=== PATIENT | female | born 1995 | race Caucasian/White ===

== ENCOUNTER → 2018-05-07 | Outpatient (CLI) | payer OTHER | END | disposition home or self-care (01) | LOC: C.LAB1850 16:28 | PROVIDERS: ATTEND Obstetrics & Gynecology | DX: O46.90 Antepartum hemorrhage, unspecified, unspecified trimester (principal) ==

== ENCOUNTER → 2018-05-14 | Outpatient (CLI) | payer OTHER | END | disposition home or self-care (01) | LOC: C.LAB1850 16:19 | PROVIDERS: ATTEND Obstetrics & Gynecology | DX: O02.1 Missed abortion (principal) ==

== ENCOUNTER → 2018-05-29 | Outpatient (CLI) | payer OTHER ==
[~2018-05-29] MED LIST: NITR1CAP16 PO; PHEN-876 PO
== END | disposition home or self-care (01) ==
LOC: C.LAB1850 15:38
PROVIDERS: ATTEND Obstetrics & Gynecology
DX: O02.1 Missed abortion (principal)

== ENCOUNTER 2018-06-05 20:15 | Emergency (ER) | payer OTHER ==
[~2018-06-05] VITALS: Ht 157.5 cm; Wt 61.8 kg
[2018-06-05 20:24] VITALS: TEMP 36.8; Ht 157.5 cm; Wt 61.8 kg
[2018-06-05] MEDS ORDERED: PHENAZOPYRIDINE HCL 200 MG TAB PO STA (21:22)
[2018-06-05] MEDS ORDERED: NITROFURANTOIN MONOHYDRATE 100 MG CAP PO STA (21:22)
[2018-06-05] MEDS ORDERED: PHEN-876 PO (21:27)
[2018-06-05] MEDS ORDERED: NITR1CAP16 PO (21:27)
--- NOTE | 2018-06-05 21:29 | EMERGENCY ROOM VISIT NOTE ---
History Report prepared by Gm: Dino Romero Under the Supervision of: Dr. Catrachito Fernandez D.O. First contact with patient: 20:28 Chief Complaint: URINARY SYMPTOMS Stated Complaint: UTI Nursing Triage Summary: Pt reports UTI. Pt with burning, increase in frequency, pain during urination. History of Present Illness The patient is a 23 year old female who presents to the Emergency Room with complaints of dysuria, cramping pressure to the abdomen, and a burning sensation in the urethra that started 3 days ago. She has tried cranberry juice along with drinking a lot of fluids to try to relieve the pain but it did not work. She does not know her last normal menstrual period due to a recent miscarriage. Source of History: patient Onset: 3 days ago Position: pelvis (Genitourinary ) Quality: pressure, burning Modifying Factors (Worsening): urination Associated Symptoms: + abdominal pain, + urinary symptoms Review of Systems See HPI for pertinent positives & negatives. A total of 10 systems reviewed and were otherwise negative. Past Medical & Surgical Medical Problems: (1) 7 weeks gestation of (2) Cramping affecting , antepartum (3) Migraine (4) Twin (5) Twins (6) Twins (7) Uterine contractions Family History Patient reports no known family medical history. Social History Smoking Status: Current Every Day Smoker Drug Use: none Housing Status: lives with family Occupation Status: employed Current/Historical Medications Scheduled Nitrofurantoin Monohyd Macro (Macrobid), 1 CAP PO BID Phenazopyridine HCl (Pyridium), 200 MG PO TID Allergies Coded Allergies: Oxycodone (Verified Allergy, Severe, ANAPHYLAXIS, 05/06/18) Physical Exam Vital Signs Date Time Temp Pulse Resp B/P (MAP) Pulse Ox O2 Delivery O2 Flow Rate FiO2 06/05/18 20:24 36.8 98 18 121/81 96 Room Air Physical Exam CONSTITUTIONAL/VITAL SIGNS: Reviewed / noted above. GENERAL: Non-toxic in appearance. INTEGUMENTARY: Warm, dry, and [place]. HEAD: Normocephalic. EYES: without scleral icterus or trauma. ENT/OROPHARYNX: clear and moist. LYMPHADENOPATHY/NECK: Is supple without lymphadenopathy or meningismus. RESPIRATORY: Lungs clear and equal. CARDIOVASCULAR: Regular rate and rhythm. GI/ABDOMEN: Soft and nontender. No organomegaly or pulsatile mass. No rebound or guarding. Normal bowel sounds. EXTREMITIES: Warm and well perfused. BACK: No CVA tenderness. NEUROLOGICAL: Intact without focal deficits. PSYCHIATRIC: normal affect. MUSCULOSKELETAL: Normally developed with good muscle tone. Medical Decision & Procedures Laboratory Results Test 06/05/18 20:55 Bedside Urine Test NEG (NEG) Laboratory results as stated above per my review. ED Course 2038: Previous medical records were reviewed. The patient was evaluated in room B12B. A complete history and physical examination was performed. 2121: Pyridium 200mg PO, Macrobid Cap 100mg PO 2130: On reevaluation, the patient is resting in bed. I discussed the results and findings with the patient. She verbalized agreement of the treatment plan. She was discharged home. Medical Decision Differential considered: pancreatitis, hepatitis, or acute cholecystitis, AAA, UTI, pyelonephritis, kidney stones, appendicitis, diverticulitis, shingles, bowel obstruction mesenteric ischemia, intussusception,hernia, ovarian torsion, ruptured ovarian cyst,ectopic , . This is a 23-year-old female who presents to the ED with a chief complaint of urinary infection symptoms. She has describes some burning as well as frequency. She describes some lower abdominal discomfort. She has not had any fevers. The patient is here also with her son who has a fever and abdominal pain. A urine dip reveals evidence of UTI. Urine culture has been sent. Her exam was unremarkable. She was given Pyridium and Macrobid. She will be discharged on Macrobid. Medication Reconcilliation Current Medication List: was personally reviewed by me Blood Pressure Screening Patient's blood pressure: Normal blood pressure Impression Primary Impression: UTI (urinary tract infection) Scribe Attestation The scribe's documentation has been prepared under my direction and personally reviewed by me in its entirety. I confirm that the note above accurately reflects all work, treatment, procedures, and medical decision making performed by me. Departure Information Dispostion Home / Self-Care Prescriptions Phenazopyridine HCl (Pyridium) 200 Mg Tab 200 MG PO TID for Bladder Pain, #6 TAB Prov: Catrachito Fernandez D.OTrevor 06/05/18 Nitrofurantoin Monohyd Macro (MACROBID) 100 Mg Cap 1 CAP PO BID for 5 Days, #10 CAP Prov: Catrachito Fernandez D.O. 06/05/18 Referrals No Doctor, Assigned (PCP) Forms HOME CARE DOCUMENTATION FORM, IMPORTANT VISIT INFORMATION Patient Instructions My [facility] Additional Instructions Macrobid as prescribed. Pyridium as prescribed . Follow-up with your doctor for further care and evaluation in 1-2 days if worsening. Return to the emergency department for worsening or new symptoms or any concerns. You have been examined and treated today on an emergency basis only. This is not a substitute for, or an effort to provide, complete comprehensive medical care. It is impossible to recognize and treat all injuries or illnesses in a single emergency department visit. It is therefore important that you follow up closely with your doctor. Call as soon as possible for an appointment.
[2018-06-05 21:49] VITALS: BP 111/72; PULSE 73; O2SAT 99
== END 2018-06-05 21:50 | disposition home or self-care (01) ==
LOC: C.EDB 20:16
DX: N39.0 Urinary tract infection, site not specified (principal); F17.210 Nicotine dependence, cigarettes, uncomplicated; Z88.5 Allergy status to narcotic agent

== ENCOUNTER 2018-06-16 13:31 | Emergency (ER) | payer OTHER ==
[~2018-06-16] VITALS: Ht 157.5 cm; Wt 61.5 kg
[~2018-06-16 13:31] MED LIST changes: -NITR1CAP16 PO
[2018-06-16 13:37] VITALS: Ht 157.5 cm; Wt 61.5 kg
[2018-06-16] MEDS ORDERED: ONDANSETRON INJ 2 MG/ML 2 ML VIAL IV STA ×2 (13:56→16:27)
[2018-06-16] MEDS ORDERED: SODIUM CHLORIDE 0.9% 1000ML 2,000 ML IV STA (13:56)
[2018-06-16] MEDS ORDERED: MoRPHine SULFATE 4 MG/ML 1 ML CARP\\VIAL IV STA ×2 (13:56→16:27)
[2018-06-16 14:41] LABS: BASO % 0.3 %; BASO ABS # 0.02 K/uL (0-0.2); EOS % 1.7 %; HEMATOCRIT 36.5 % (37-47); HEMOGLOBIN 12.2 g/dL (12.0-16.0); IG# 0.01 K/uL (0.00-0.02); LYMPH ABS # 2.41 K/uL (1.2-3.4); MEAN CELL VOLUME 86.7 fL (80-100); MEAN CORPUSCULAR HGB CONC 33.4 g/dl (32-36); MEAN PLATELET VOLUME 10.5 fL (7.4-10.4); MONO % 5.8 %; MONO ABS # 0.35 K/uL (0.11-0.59); NEUT ABS # 3.13 K/uL (1.4-6.5); PLATELET COUNT 201 K/uL (130-400); RED CELL DISTRIBUTION WIDTH CV 12.7 % (11.5-14.5); WHITE BLOOD COUNT 6.02 K/uL (4.8-10.8)
[2018-06-16] MEDS ORDERED: CIPR1TAB11 PO (14:46)
[2018-06-16 15:03] LABS: ALBUMIN 3.9 gm/dl (3.4-5.0); CALCIUM 8.5 mg/dl (8.5-10.1); CREATININE 0.68 mg/dl (0.60-1.20); POTASSIUM 3.5 mmol/L (3.5-5.1); TOTAL PROTEIN 7.5 gm/dl (6.4-8.2)
--- NOTE | 2018-06-16 15:19 | DIAGNOSTIC IMAGING REPORT ---
ABDOMEN 2VIEW W/PA CHEST RTN HISTORY: 23 years-old Female abd pain acute generalized abdominal pain COMPARISON: None available TECHNIQUE: PA view of the chest with erect and supine views of the abdomen FINDINGS: Cardiomediastinal and hilar silhouettes are within normal limits. No pneumothorax, pleural effusion, focal airspace consolidation or overt pulmonary edema. Bones of the chest appear grossly intact. Mild sigmoidal scoliosis of the thoracolumbar spine. No pneumatosis or pneumoperitoneum. Bowel gas pattern appears nonobstructive. No definite urolith identified. Mild gaseous distention of the large bowel. IMPRESSION: Unremarkable acute abdominal series radiographs. The above report was generated using voice recognition software. It may contain grammatical, syntax or spelling errors. Electronically signed by: Bakari Horton M.D. 06/16/2018 3:18 PM Dictated Date/Time: 06/16/2018 3:14 PM
--- NOTE | 2018-06-16 15:51 | DIAGNOSTIC IMAGING REPORT ---
ABDOMINAL ULTRASOUND, RIGHT UPPER QUADRANT HISTORY: Epigastric abdominal pain.. COMPARISON: None. FINDINGS: Pancreas: The pancreas demonstrates a normal echotexture. Liver: Unremarkable. Gallbladder: No gallbladder wall thickening. No gallstones. CBD: 3 mm. Right kidney: No hydronephrosis. IMPRESSION: No significant abnormality identified within the right upper quadrant. Electronically signed by: Ender Lopez M.D. 06/16/2018 3:50 PM Dictated Date/Time: 06/16/2018 3:49 PM
[2018-06-16] MEDS ORDERED: ONDA4TAB46 PO (16:24)
[2018-06-16 16:49] VITALS: BP 111/61; PULSE 70; TEMP 37; O2SAT 100
--- NOTE | 2018-06-16 20:07 | EMERGENCY ROOM VISIT NOTE ---
History Report prepared by Gm: Johnna Cohn Under the Supervision of: Armin PickensO. First contact with patient: 13:47 Chief Complaint: ABDOMINAL PAIN Stated Complaint: STOMACH PAIN History of Present Illness The patient is a 23 year old female who presents to the Emergency Room with complaints of constant upper abdominal pain that onset yesterday. The patient describes this as a sharp and burning pain. She notes that this pain onset while she was at work. She states that eating exacerbates the pain. She complains of nausea, vomiting once, a subjective fever, chills, and diarrhea once. The patient denies vaginal discharge and bleeding. The patient states that she had a miscarriage a few months ago so she has an irregular period, and might be . She notes that she currently has a UTI that she is taking antibiotics for. She notes that she has a history of an appendectomy. Source of History: patient Onset: yesterday Position: abdomen (upper) Quality: burning, sharp Timing: constant Modifying Factors (Worsening): eating Associated Symptoms: + fevers, + chills, + nausea, + vomiting, + diarrhea Note: The patient denies vaginal bleeding or discharge. Review of Systems See HPI for pertinent positives & negatives. A total of 10 systems reviewed and were otherwise negative. Past Medical & Surgical Medical Problems: (1) 7 weeks gestation of (2) Cramping affecting , antepartum (3) Migraine (4) Twin (5) Twins (6) Twins (7) Uterine contractions Family History FH: HTN (hypertension) FH: diabetes mellitus FH: gallbladder disease FH: heart disease FH: seizures Social History Smoking Status: Current Every Day Smoker Drug Use: none Housing Status: lives with family Occupation Status: employed Current/Historical Medications Scheduled Ciprofloxacin Tab (Cipro), 250 MG PO BID Scheduled PRN Ondansetron Hcl (Zofran), 4 MG PO TID PRN for Nausea Allergies Coded Allergies: Oxycodone (Verified Allergy, Severe, ANAPHYLAXIS, 06/16/18) Physical Exam Vital Signs Date Time Temp Pulse Resp B/P (MAP) Pulse Ox O2 Delivery O2 Flow Rate FiO2 06/16/18 16:49 37.0 70 15 111/61 100 06/16/18 16:10 70 15 111/60 100 Room Air 06/16/18 13:37 37.0 85 18 123/80 99 Room Air Physical Exam GENERAL: Sitting up in bed, alert, well appearing, well nourished, no distress, non-toxic EYE EXAM: normal conjunctiva. OROPHARYNX: no exudate, no erythema, lips, buccal mucosa, and tongue normal and mucous membranes are moist NECK: supple, no nuchal rigidity, no adenopathy, non-tender LUNGS: Clear to auscultation. Normal chest wall mechanics HEART: no murmurs, S1 normal and S2 normal ABDOMEN: abdomen soft, tenderness to the middle epigastric region, normo-active bowel sounds, no masses, no rebound or guarding. BACK: Back is symmetrical on inspection and there is no deformity, no midline tenderness, no CVA tenderness. SKIN: no rashes and no bruising UPPER EXTREMITIES: upper extremities are grossly normal. LOWER EXTREMITIES: No pitting edema. NEURO EXAM: Normal sensorium, cranial nerves II-XII grossly intact, normal speech, no gross weakness of arms, no gross weakness of legs. Medical Decision & Procedures ER Provider Diagnostic Interpretation: Radiology results as stated below per my review and the radiologist's interpretation: ABDOMINAL ULTRASOUND, RIGHT UPPER QUADRANT HISTORY: Epigastric abdominal pain.. COMPARISON: None. FINDINGS: Pancreas: The pancreas demonstrates a normal echotexture. Liver: Unremarkable. Gallbladder: No gallbladder wall thickening. No gallstones. CBD: 3 mm. Right kidney: No hydronephrosis. IMPRESSION: No significant abnormality identified within the right upper quadrant. Electronically signed by: Ender Lopez M.D. 06/16/2018 3:50 PM Dictated Date/Time: 06/16/2018 3:49 PM ABDOMEN 2VIEW W/PA CHEST RTN HISTORY: 23 years-old Female abd pain acute generalized abdominal pain COMPARISON: None available TECHNIQUE: PA view of the chest with erect and supine views of the abdomen FINDINGS: Cardiomediastinal and hilar silhouettes are within normal limits. No pneumothorax, pleural effusion, focal airspace consolidation or overt pulmonary edema. Bones of the chest appear grossly intact. Mild sigmoidal scoliosis of the thoracolumbar spine. No pneumatosis or pneumoperitoneum. Bowel gas pattern appears nonobstructive. No definite urolith identified. Mild gaseous distention of the large bowel. IMPRESSION: Unremarkable acute abdominal series radiographs. The above report was generated using voice recognition software. It may contain grammatical, syntax or spelling errors. Electronically signed by: Bakari Horton M.D. 06/16/2018 3:18 PM Dictated Date/Time: 06/16/2018 3:14 PM Laboratory Results 06/16/18 14:30 Red Blood Count 4.21, Mean Corpuscular Volume 86.7, Mean Corpuscular Hemoglobin 29.0, Mean Corpuscular Hemoglobin Concent 33.4, Mean Platelet Volume 10.5, Neutrophils (%) (Auto) 52.0, Lymphocytes (%) (Auto) 40.0, Monocytes (%) (Auto) 5.8, Eosinophils (%) (Auto) 1.7, Basophils (%) (Auto) 0.3, Neutrophils # (Auto) 3.13, Lymphocytes # (Auto) 2.41, Monocytes # (Auto) 0.35, Eosinophils # (Auto) 0.10, Basophils # (Auto) 0.02 06/16/18 14:30 Test 06/16/18 14:15 06/16/18 14:30 Urine Color YELLOW Urine Appearance CLOUDY (CLEAR) Urine pH 6.0 (4.5-7.5) Urine Specific [place] 1.015 (1.000-1.030) Urine Protein NEG (NEG) Urine Glucose (UA) NEG (NEG) Urine Ketones 1+ (NEG) Urine Occult Blood NEG (NEG) Urine Nitrite NEG (NEG) Urine Bilirubin NEG (NEG) Urine Urobilinogen NEG (NEG) Urine Leukocyte Esterase TRACE (NEG) Urine WBC (Auto) 5-10 /hpf (0-5) Urine RBC (Auto) 0-4 /hpf (0-4) Urine Hyaline Casts (Auto) 1-5 /lpf (0-5) Urine Epithelial Cells (Auto) >30 /lpf (0-5) Urine Bacteria (Auto) 1+ (NEG) Urine Test NEG (NEG) White Blood Count 6.02 K/uL (4.8-10.8) Red Blood Count 4.21 M/uL (4.2-5.4) Hemoglobin 12.2 g/dL (12.0-16.0) Hematocrit 36.5 % (37-47) Mean Corpuscular Volume 86.7 fL (80-100) Mean Corpuscular Hemoglobin 29.0 pg (25-34) Mean Corpuscular Hemoglobin Concent 33.4 g/dl (32-36) Platelet Count 201 K/uL (130-400) Mean Platelet Volume 10.5 fL (7.4-10.4) Neutrophils (%) (Auto) 52.0 % Lymphocytes (%) (Auto) 40.0 % Monocytes (%) (Auto) 5.8 % Eosinophils (%) (Auto) 1.7 % Basophils (%) (Auto) 0.3 % Neutrophils # (Auto) 3.13 K/uL (1.4-6.5) Lymphocytes # (Auto) 2.41 K/uL (1.2-3.4) Monocytes # (Auto) 0.35 K/uL (0.11-0.59) Eosinophils # (Auto) 0.10 K/uL (0-0.5) Basophils # (Auto) 0.02 K/uL (0-0.2) RDW Standard Deviation 41.0 fL (36.4-46.3) RDW Coefficient of Variation 12.7 % (11.5-14.5) Immature Granulocyte % (Auto) 0.2 % Immature Granulocyte # (Auto) 0.01 K/uL (0.00-0.02) Anion Gap 9.0 mmol/L (3-11) Est Creatinine Clear Calc Drug Dose 109.1 ml/min Estimated GFR () 140.9 Estimated GFR (Non- 121.6 BUN/Creatinine Ratio 10.2 (10-20) Calcium Level 8.5 mg/dl (8.5-10.1) Total Bilirubin 0.4 mg/dl (0.2-1) Direct Bilirubin 0.1 mg/dl (0-0.2) Aspartate Amino Transf (AST/SGOT) 13 U/L (15-37) Alanine Aminotransferase (ALT/SGPT) 24 U/L (12-78) Alkaline Phosphatase 56 U/L (45-117) Total Protein 7.5 gm/dl (6.4-8.2) Albumin 3.9 gm/dl (3.4-5.0) Lipase 157 U/L (73-393) Laboratory results per my review. Medications Administered Medications (Trade) Dose Ordered Sig/Trevor Route Start Time Stop Time Status Last Admin Dose Admin Sodium Chloride 2,000 ml @ 999 mls/hr Q2H1M STAT IV 06/16/18 13:56 06/16/18 15:56 DC 06/16/18 14:47 999 MLS/HR Ondansetron HCl (Zofran Inj) 4 mg NOW STAT IV 06/16/18 13:56 06/16/18 13:59 DC 06/16/18 14:46 4 MG Morphine Sulfate (MoRPHine SULFATE INJ) 4 mg NOW STAT IV 06/16/18 13:56 06/16/18 13:59 DC 06/16/18 14:46 4 MG Morphine Sulfate (MoRPHine SULFATE INJ) 3 mg NOW STAT IV 06/16/18 16:27 06/16/18 16:28 DC 06/16/18 16:27 3 MG Ondansetron HCl (Zofran Inj) 4 mg NOW STAT IV 06/16/18 16:27 06/16/18 16:28 DC 06/16/18 16:27 4 MG ED Course ED COURSE: Vital signs were reviewed and showed that they were normal. The patients medical record was reviewed The above diagnostic studies were performed and reviewed. While in the ED, the patient had Morphine Sulfate 4 mg IV, Zofran Inj 4 mg IV, Sodium Chloride 1,000 ml @ 999 mls/hr IV. ED treatments and interventions as stated above. 1348: The patient was evaluated in room C11. A complete history and physical examination was performed. 1648: Upon reevaluation, the patient has more pain in her abdomen. I will order more medication. 1701: Upon reevaluation, the patient is resting comfortably. I discussed my findings with the patient and she understands and agrees with the treatment plan. Based on the patients age, coexisting illnesses, exam and lab findings the decision to treat as an outpatient was made. The patient remained stable while under my care. The patient appeared well at the time of discharge. Medical Decision Differential diagnoses includes but is not limited to gastritis, peptic ulcer disease, GERD, gallbladder disease, pancreatitis, small bowel obstruction, acute coronary syndrome, pericarditis, ischemic bowel, irritable bowel disease, irritable bowel syndrome, appendicitis, diverticulitis, malignancy, hernia, urinary tract infection, torsion, [/ectopic (if female)], perforation, trauma, infectious. Patient is a 23-year-old female presents to ER for nausea vomiting associated with epigastric abdominal pain. IV was established and labs were obtained. CBC along with BMP, LFTs, bilirubin lipase is unremarkable. UA was contaminated. was negative. Obstruction series was unremarkable. Ultrasound gallbladder was negative. Patient was given fluids, Zofran and 2 doses of IV morphine. She did feel significantly better. She is updated bedside. She is discharged follow-up with PCP after multiple abdominal reevaluation's which showed no signs of peritonitis. Discussed with Pt concerning signs and symptoms to watch out for. Pt was instructed to follow up with their PCP and discussed with the patient their option to return to the ED at anytime for persistent or worsening symptoms. The appropriate anticipatory guidance and out-patient management, including indications for return to the emergency department, were explained at length to the patient and understood. Medication Reconcilliation Current Medication List: was personally reviewed by me Blood Pressure Screening Patient's blood pressure: Normal blood pressure Impression Primary Impression: Abdominal pain Scribe Attestation The scribe's documentation has been prepared under my direction and personally reviewed by me in its entirety. I confirm that the note above accurately reflects all work, treatment, procedures, and medical decision making performed by me. Departure Information Dispostion Home / Self-Care Prescriptions Ondansetron Hcl (ZOFRAN) 4 Mg Tab 4 MG PO TID Y for Nausea, #20 TAB Prov: Braulio Vo, DO 06/16/18 Referrals No Doctor, Assigned (PCP) Forms HOME CARE DOCUMENTATION FORM, IMPORTANT VISIT INFORMATION Patient Instructions My [facility] Additional Instructions Please follow up with your primary care doctor with in the next 24 hours. Any worsening of your symptoms, please return to the ED immediately. This includes any fevers greater than 100.4, worsening pain, chest pain, shortness breath, persistent nausea, vomiting, unable to eat or drink, or any other concerning signs or symptoms from your standpoint. Please take Tylenol as needed for pain. These take Zofran as needed for nausea vomiting. Problem Qualifiers Primary Impression: Abdominal pain Abdominal location: unspecified location Qualified Codes: R10.9 - Unspecified abdominal pain
== END 2018-06-16 16:49 | disposition home or self-care (01) ==
LOC: C.EDB 13:32
DX: R10.13 Epigastric pain (principal); R11.2 Nausea with vomiting, unspecified; N39.0 Urinary tract infection, site not specified; F17.210 Nicotine dependence, cigarettes, uncomplicated; Z82.49 Family history of ischemic heart disease and other diseases of the circulatory system; Z83.3 Family history of diabetes mellitus; Z83.79 Family history of other diseases of the digestive system; Z82.0 Family history of epilepsy and other diseases of the nervous system; Z88.5 Allergy status to narcotic agent